=== PATIENT | male | born 1965 | race Caucasian/White ===

== ENCOUNTER 2022-08-19 19:25 | Emergency (ER) | payer OTHER ==
--- NOTE | 2022-08-19 19:53 | ERPHSYRPT ---
- History of Present Illness Time Seen by Provider: 08/19/22 19:40 Source: patient Exam Limitations: no limitations Patient Subjective Stated Complaint: pt states he had a coughing fit and lost vision in his rt eye. states he has a very slight headache on the lt side of his head, rates 1/10 Triage Nursing Assessment: pt alert and oriented answers questions approp. pt ambulates into room with steady gait noted. respirations nonlabored. skin warm and dry. bilat upper and lower ext strength equal and wnl. Timing/Duration: today, hour(s) (2) Location: right eye Severity: moderate Apparent Injury: no Associated Symptoms: decreased vision, No pain, No burning, No itching, No sensitivity to light, No redness, No matting, No eyelid swelling, No foreign body sensation, No blurred vision, No double vision Visual Assistive Devices: None Chemical Exposure: No Trauma: No Welding Arc/Tanning Bed Exposure: No Allergies/Adverse Reactions: No Known Drug Allergies Allergy (Verified 08/19/22 19:43) Home Medications: Lisinopril 20 mg [Zestril 20 MG] 20 mg PO DAILY 08/19/22 [History] Hx Tetanus, Diphtheria Vaccination/Date Given: No Hx Influenza Vaccination/Date Given: No Hx Pneumococcal Vaccination/Date Given: No Travel Risk - International Travel Have you traveled outside of the country in past 3 weeks: No - Coronavirus Screening Are you exhibiting any of the following symptoms?: No Close contact with a COVID-19 positive Pt in past 14-21 Days: No - Vaccine Status Have you recieved a Covid-19 vaccination: Yes Collar Starcher: Moderna - Vaccination Dates Date of 2cond Vaccination (if applicable): na - Review of Systems Constitutional: No Fever, No Chills Eyes: Vision Changes, No Discharge, No Eye Pain, No Eye Redness, No Itchy, No Photophobia, No Foreign Body Sensation Ears, Nose, & Throat: No Ear Pain, No Ear Discharge, No Nose Congestion, No Nose Discharge, No Sinus Drainage, No Epistaxis, No Mouth Pain, No Mouth Swelling, No Throat Pain, No Painful Swallowing Respiratory: No Cough, No Dyspnea Cardiac: No Chest Pain, No Edema, No Syncope Abdominal/Gastrointestinal: No Abdominal Pain, No Nausea, No Vomiting, No Diarrhea Genitourinary Symptoms: No Dysuria Musculoskeletal: No Back Pain, No Neck Pain Skin: No Rash Neurological: Headache, No Dizziness, No Focal Weakness, No Lethargy, No Paralysis, No Parasthesia, No Seizure, No Sensory Changes, No Speech Changes, No Tremors Psychological: No Symptoms Endocrine: No Symptoms All Other Systems: Reviewed and Negative - Past Medical History Pertinent Past Medical History: Yes Cardiac History: High Cholesterol, Hypertension Psycho-Social History: Depression - Past Surgical History Past Surgical History: No - Social History Smoking Status: Current every day smoker How long have you smoked: 40yrs Exposure to second hand smoke: Yes Drug Use: none Patient Lives Alone: No - Nursing Vital Signs Nursing Vital Signs: Initial Vital Signs Temperature 98.1 F 08/19/22 19:30 Pulse Rate 83 08/19/22 19:30 Respiratory Rate 16 08/19/22 19:30 Blood Pressure 156/86 08/19/22 19:30 O2 Sat by Pulse Oximetry 99 08/19/22 19:30 Pain Scale Pain Intensity 1 - Physical Exam General Appearance: no apparent distress, alert Vision Acuity Degree Evaluation Phase: Uncorrected Vision Acuity Right Eye: 20/100 Vision Acuity Left Eye: 20/50 Eye Exam: bilateral eye: normal inspection, PERRL, EOMI Ears, Nose, Throat Exam: normal ENT inspection, TMs normal, pharynx normal, moist mucous membranes Neck Exam: normal inspection, non-tender, supple, full range of motion, No meni ngismus, No Brudzinski Respiratory Exam: normal breath sounds Cardiovascular Exam: regular rate/rhythm, normal heart sounds, capillary refill <2 sec Gastrointestinal Exam: soft, normal bowel sounds, No tenderness, No mass, No guarding, No rebound Extremity Exam: normal inspection, normal range of motion, No tenderness Neurologic: alert, oriented x 3, cooperative, rural service engineer II-XII nml as tested, normal mood/affect, nml cerebellar function, nml station & gait, sensation nml, motor deficits, other (NIHSS: 0) Skin Exam: normal color, warm, dry, No rash, No petechiae, No jaundice, No cyanosis Lymphatic: No adenopathy SpO2 Interpretation: normal SpO2: 99 O2 Delivery: Room Air - Course Nursing assessment & vital signs reviewed: Yes EKG Interpreted by Me: RATE, Sinus Rhythm (76), NORMAL AXIS, NORMAL INTERVALS, NORMAL QRS, NORMAL ST-T - CT Exams Head CT Interpretation: Negative, Tele-radiologist Report (Normal CT of the head) Ordered Tests: Active Orders 24 hr Category Date Time Status Credit Correspondence Clerk STAT Care 08/19/22 19:44 Active EKG-ER Only STAT Care 08/19/22 19:43 Active NPO (ED) STAT Care 08/19/22 19:43 Active Visual Acuity STAT Care 08/19/22 19:43 Active HEAD WITHOUT CONTRAST [CT] Stat Exams 08/19/22 19:44 Completed BMP Stat Lab 08/19/22 19:43 Completed CBC W DIFF Stat Lab 08/19/22 19:43 Completed ETHYL ALCOHOL Stat Lab 08/19/22 19:43 Completed MAGNESIUM Stat Lab 08/19/22 19:43 Completed PTT Stat Lab 08/19/22 19:43 Completed TROPONIN Q4H Lab 08/19/22 19:43 Completed TROPONIN Q4H Lab 08/19/22 23:45 Ordered TROPONIN Q4H Lab 08/20/22 03:45 Ordered TSH [TSH, 3RD Generation] Stat Lab 08/19/22 19:43 Completed UA W/RFX UR CULTURE Stat Lab 08/19/22 19:44 Ordered Lab/Rad Data: Laboratory Result Diagrams 08/19/22 19:43 08/19/22 19:43 Laboratory Results 08/19/22 08/19/22 08/19/22 Range/Units 19:43 19:43 19:43 WBC (4.0-10.5) x10^3/uL RBC (4.1-5.6) x10^6/uL Hgb (12.5-18.0) g/dL Hct (42-50) % MCV (78-100) fL MCH (26-32) pg MCHC (32-36) g/dL RDW (11.5-14.0) % Plt Count (150-450) x10^3/uL MPV (7.5-11.0) fL Gran % (36.0-66.0) % Immature Gran % (Auto) (0.00-0.4) % Nucleat RBC Rel Count (0.00-0.1) % Eos # (Auto) (0-0.5) x10^3/uL Immature Gran # (Auto) (0.00-0.03) x10^3u/L Absolute Lymphs (auto) (1.0-4.6) x10^3/uL Absolute Monos (auto) (0.0-1.3) x10^3/uL Absolute Nucleated RBC (0.00-0.01) x10^3u/L Lymphocytes % (24.0-44.0) % Monocytes % (0.0-12.0) % Eosinophils % (0.00-5.0) % Basophils % (0.0-0.4) % Absolute Granulocytes (1.4-6.9) x10^3/uL Basophils # (0-0.4) x10^3/uL APTT 27.2 (25.1-36.5) SECONDS Sodium (137-145) mmol/L Potassium (3.5-5.1) mmol/L Chloride (98-107) mmol/L Carbon Dioxide (22-30) mmol/L Anion Gap (5-15) MEQ/L BUN (9-20) mg/dL Creatinine (0.66-1.25) mg/dL Estimated GFR ML/MIN Glucose (74-106) mg/dL Calcium (8.4-10.2) mg/dL Magnesium 2.1 (1.6-2.3) mg/dL Troponin I < 0.012 (0.000-0.034) ng/mL TSH 3rd Generation 3.760 (0.47-4.68) mIU/L Ethyl Alcohol (0-10) mg/dL 08/19/22 08/19/22 Range/Units 19:43 19:43 WBC 8.1 (4.0-10.5) x10^3/uL RBC 4.76 (4.1-5.6) x10^6/uL Hgb 14.7 (12.5-18.0) g/dL Hct 44.5 (42-50) % MCV 93.5 (78-100) fL MCH 30.9 (26-32) pg MCHC 33.0 (32-36) g/dL RDW 11.9 (11.5-14.0) % Plt Count 302 (150-450) x10^3/uL MPV 9.6 (7.5-11.0) fL Gran % 57.2 (36.0-66.0) % Immature Gran % (Auto) 0.2 (0.00-0.4) % Nucleat RBC Rel Count 0.0 (0.00-0.1) % Eos # (Auto) 0.33 (0-0.5) x10^3/uL Immature Gran # (Auto) 0.02 (0.00-0.03) x10^3u/L Absolute Lymphs (auto) 2.41 (1.0-4.6) x10^3/uL Absolute Monos (auto) 0.66 (0.0-1.3) x10^3/uL Absolute Nucleated RBC 0.00 (0.00-0.01) x10^3u/L Lymphocytes % 29.8 (24.0-44.0) % Monocytes % 8.1 (0.0-12.0) % Eosinophils % 4.1 (0.00-5.0) % Basophils % 0.6 (0.0-0.4) % Absolute Granulocytes 4.63 (1.4-6.9) x10^3/uL Basophils # 0.05 (0-0.4) x10^3/uL APTT (25.1-36.5) SECONDS Sodium 140 (137-145) mmol/L Potassium 4.1 (3.5-5.1) mmol/L Chloride 101 (98-107) mmol/L Carbon Dioxide 35 H (22-30) mmol/L Anion Gap 8.0 (5-15) MEQ/L BUN 14 (9-20) mg/dL Creatinine 0.86 (0.66-1.25) mg/dL Estimated GFR > 60.0 ML/MIN Glucose 76 (74-106) mg/dL Calcium 8.6 (8.4-10.2) mg/dL Magnesium (1.6-2.3) mg/dL Troponin I (0.000-0.034) ng/mL TSH 3rd Generation (0.47-4.68) mIU/L Ethyl Alcohol < 10 (0-10) mg/dL - Progress Progress: unchanged Progress Note: 08/19/22 19:43 Patient is not a candidate for alteplase due to his NIHSS being zero and his visual acuity grossly intact 08/19/22 19:52 Right eye: 20/100; Left eye: 20/50 08/19/22 20:35 Patient came in with partial visual field loss in the right side after coughing. His examination showed gross visual lee intact but the medial aspect of his right visual lee that he could not see anything clearly, and without have any other focal neurologic deficits on his examination, I do not feel the patient had a cerebrovascular accident that required alteplase and his CT of his head was negative for any concerning findings of the visual area of the occipital lobe. Patient had normal sinus rhythm with no sinus arrhythmias on his cardiac monitoring had a normal EKG, normal secondary work-up in regards to labs including CBC, CMP, TSH, magnesium and troponin, so patient was discussed with ophthalmology and Patti browne at [facility] who accepted the patient for transfer to the emergency department where he was seen in the emergency room and determine if he has any potential signs of a retinal detachment, posterior visual detachment causing blockage of vision or any lens detachment that is causing change in his vision. Patient will be going by private vehicle to decreased transportation time as we have no ambulance coverage at this time and he was in stable condition to be transported via private vehicle and patient and his peg driver understand to go straight to the emergency room with no stop anywhere else so that ophthalmology may be able to see the patient with limited loss of time. Discussed with .: Other (Dr Ramirez, web analyst at [facility] in [place], [place]) Will see patient in: ED (At [facility] emergency department in [place], [place]) Counseled pt/family regarding: lab results, diagnosis, need for follow-up, rad results, smoking cessation Medical Desision Making - Discussion of managment Care discussed with:: specialist Reviewed:: Test results, Need for additional workup Agreed on:: need for follow-up Will see patient: in ED - Social Determinants of Health Limited access to: transportation - Diagnostic Testing Diagnostic test were ordered, analyzed, and reviewed by me: Yes Radiological Interpretation: Reviewed by me, Teleradiologist Report - Risk of complications The pt has a high risk of morbidity or mortality based on: Decision regarding hospitilization or escalation of hosp level of care (Probable need for ophthalmologic surgical intervention) - Departure Departure Disposition: Transfer ([facility]) Clinical Impression: Vision loss of right eye, Essential hypertension Condition: Fair Critical Care Time: Yes Critical Care Time(excluding separately billable procedures): Critical 30-74 mins Additional Instructions: Go straight to the emergency room at [facility] in [place], [place]. Instructions given to you by nursing
[2022-08-19 19:59] LABS: Absolute Neutrophil Ct (ANC) 4.63 x10^3/uL (1.4-6.9); BASOPHIL % 0.6 % (0.0-0.4); Basophil (Absolute #) 0.05 x10^3/uL (0-0.4); Eosinophil % 4.1 % (0.00-5.0); Eosinophil (Absolute #) 0.33 x10^3/uL (0-0.5); Hematocrit 44.5 % (42-50); Hemoglobin 14.7 g/dL (12.5-18.0); IMMATURE GRAN # 0.02 x10^3u/L (0.00-0.03); IMMATURE GRAN % 0.2 % (0.00-0.4); Lymphocyte (Absolute #) 2.41 x10^3/uL (1.0-4.6); Lymphocytes % 29.8 % (24.0-44.0); Mean Cell Volume 93.5 fL (78-100); Mean Corpuscular Hemoglobin 30.9 pg (26-32); Mean Platelet Volume 9.6 fL (7.5-11.0); Monocyte (Absolute #) 0.66 x10^3/uL (0.0-1.3); Monocytes % 8.1 % (0.0-12.0); Neutrophil % 57.2 % (36.0-66.0); Platelet Count 302 x10^3/uL (150-450); Red Blood Count 4.76 x10^6/uL (4.1-5.6); Red Cell Distribution Width 11.9 % (11.5-14.0); White Blood Count 8.1 x10^3/uL (4.0-10.5)
[2022-08-19 20:15] LABS: BLOOD UREA NITROGEN 14 mg/dL (9-20); CHLORIDE 101 mmol/L (98-107); Calcium 8.6 mg/dL (8.4-10.2); Carbon Dioxide 35 mmol/L (22-30); Creatinine 1 0.86 mg/dL (0.66-1.25); EST GLOMERULAR FILTRATION RATE > 60.0 ML/MIN; ETHYL ALCOHOL < 10 mg/dL (0-10); Glucose 76 mg/dL (74-106); Potassium 4.1 mmol/L (3.5-5.1); SODIUM 140 mmol/L (137-145)
--- NOTE | 2022-08-19 20:19 | XRAY ---
Indication: Right eye vision loss with coughing. Left-sided headache. Multiple contiguous axial images obtained through the head without contrast. Comparison: None Normal appearing brain parenchyma, ventricles, and bony calvarium for patient's age. Visualized paranasal sinuses and mastoid air cells are clear. Impression: Normal CT head without contrast exam.
[2022-08-19 20:46] LABS: TROPONIN < 0.012 ng/mL (0.000-0.034)
[2022-08-19 21:01] VITALS: BP 133/88; PULSE 78
[2022-08-19 21:08] VITALS: O2SAT 99
== END 2022-08-19 21:05 | disposition short-term general hospital (02) ==
LOC: ED 19:25
DX: H54.61 Unqualified visual loss, right eye, normal vision left eye (principal); I10 Essential (primary) hypertension; E78.5 Hyperlipidemia, unspecified; Z79.899 Other long term (current) drug therapy; Z72.0 Tobacco use
CPT/HCPCS: 36415; 70450; 80048; 80307; 83735; 84443; 84484; 85025; 85730; 93005; 93041; 99284; 99291; G0480

== ENCOUNTER 2023-07-12 22:07 | Emergency (ER) | payer MEDICAID, OTHER ==
--- NOTE | 2023-07-12 22:31 | ERPHSYRPT ---
- History of Present Illness Time Seen by Provider: 07/12/23 22:31 Source: patient, family Exam Limitations: no limitations Physician History: This is a 58-year-old white male patient with no family doctor presents to the emergency department is 1 to 2-day history of worsening pain redness and swelling to the dorsal and lateral aspect of his right foot. Patient is not diabetic. He suffered no injury. There is no odor present. There is no open drainage site. He has never had this type of issue before. He has no history of gout. Patient has not had a fever. Patient is a daily smoker of cigarettes. Patient has a ride home. Patient does have a history of hyperlipidemia and hypertension. Method of Injury: other (No injury) Occurred: days ago (1 to 2 days) Quality: sharpness Severity of Pain-Max: mild (To moderate) Severity of Pain-Current: mild (To moderate) Lower Extremities Pain: foot: right (Dorsal and lateral aspect including digits 345 with redness) Modifying Factors: Improves With: movement Associated Symptoms: other (Hurts to bear weight but can do so) Allergies/Adverse Reactions: No Known Drug Allergies Allergy (Verified 07/12/23 22:46) Home Medications: Lisinopril 20 mg [Zestril 20 MG] 20 mg PO DAILY 08/19/22 [History] Hx Tetanus, Diphtheria Vaccination/Date Given: No Hx Influenza Vaccination/Date Given: No Hx Pneumococcal Vaccination/Date Given: No Travel Risk - International Travel Have you traveled outside of the country in past 3 weeks: No - Coronavirus Screening Are you exhibiting any of the following symptoms?: No Close contact with a COVID-19 positive Pt in past 14-21 Days: No - Vaccine Status Have you recieved a Covid-19 vaccination: Yes General Assistant: Moderna - Vaccination Dates Date of 2cond Vaccination (if applicable): na - Review of Systems Constitutional: No Symptoms Eyes: No Symptoms Ears, Nose, & Throat: No Symptoms Respiratory: No Symptoms Cardiac: No Symptoms Abdominal/Gastrointestinal: No Symptoms Genitourinary Symptoms: No Symptoms Musculoskeletal: No Symptoms Skin: Cellulitis Neurological: No Symptoms Psychological: No Symptoms Endocrine: No Symptoms Hematologic/Lymphatic: No Symptoms Immunological/Allergic: No Symptoms All Other Systems: Reviewed and Negative - Past Medical History Pertinent Past Medical History: Yes Cardiac History: High Cholesterol, Hypertension Psycho-Social History: Depression - Past Surgical History Past Surgical History: No - Social History Smoking Status: Current every day smoker How long have you smoked: 40yrs Exposure to second hand smoke: Yes Drug Use: none Patient Lives Alone: No - Physical Exam General Appearance: no apparent distress, alert, anxiety Eyes, Ears, Nose, Throat Exam: moist mucous membranes, other (Poor dentition with multiple missing teeth) Neck Exam: normal inspection, non-tender, supple, full range of motion Cardiovascular/Respiratory Exam: chest non-tender, no respiratory distress Gastrointestinal/Abdominal Exam: non-tender Back Exam: normal inspection, normal range of motion, No CVA tenderness, No vertebral tenderness Hips Exam: bilateral: non-tender, normal inspection, normal range of motion, no evidence of injury Legs Exam: bilateral leg: non-tender, normal inspection, normal range of motion, no evidence of injury Knees Exam: bilateral knee: non-tender, normal inspection, normal range of motion, no evidence of injury Ankle Exam: bilateral ankle: non-tender, normal inspection, normal range of motion, no evidence of injury Foot Exam: right foot: soft tissue tenderness, swelling, left foot: non-tender, normal inspection, normal range of motion, no evidence of injury, other (Cellulitis dorsal and lateral aspect. Digits 345 are also red and tender. No open wounds. No abscess. Strong pedal pulses present) Neuro/Tendon Exam: normal sensation, normal motor functions, normal tendon functions, responds to pain, no evidence tendon injury Mental Status Exam: alert, oriented x 3, cooperative Skin Exam: other (Cellulitis left foot. See above description) SpO2 Interpretation: normal O2 Delivery: Room Air - Course Nursing assessment & vital signs reviewed: Yes Ordered Tests: Medication Summary Discontinued Medications Generic Name Dose Route Start Last Admin Trade Name Freq PRN Reason Stop Dose Admin Ceftriaxone Sodium 1,000 mg 07/12/23 22:54 Ceftriaxone Sodium 1000 Mg Inj Vial IM 07/12/23 22:55 STAT ONE Methylprednisolone Sodium 0 mg 07/12/23 22:54 Succinate 125 mg/ Sterile IM 07/12/23 22:55 Water 2 ml STAT ONE Oxycodone/Acetaminophen 1 tab 07/12/23 22:53 Oxycodone Hcl/Apap 5 Mg/325 Mg Tablet PO 07/12/23 22:54 STAT STA Trimethoprim/Sulfamethoxazole 1 tab 07/12/23 22:56 Smz/Tmp Ds Tablet 1 Tablet PO 07/12/23 22:57 STAT ONE - Progress Progress: pain not gone completely Progress Note: 07/12/23 23:05 This patient's medical issue is 1 of low complexity. The level of complexity and the workup performed is based on review of the patient's past medical history, review of the patient's medication list, review of the patient's drug allergy list, history of present illness and physical findings on examination. No laboratory or radiographic studies necessary in this patient. We will provide the patient with Percocet 5/325 orally, oral Bactrim DS and injection of Rocephin 1 g intramuscularly. Counseled pt/family regarding: diagnosis, need for follow-up Medical Desision Making - Diagnostic Testing Diagnostic test were ordered, analyzed, and reviewed by me: No - Risk of complications The pt has a mod risk of morbidity or mortality based on: Need for prescription drug management - Departure Departure Disposition: Home Clinical Impression: Cellulitis of right foot Condition: Stable Critical Care Time: No Referrals: DOCTOR,NO FAMILY [Primary Care Provider] - Follow up/PCP as directed Additional Instructions: Keep your right foot clean daily with soap and water. Apply unscented moisturizing lotion to your feet and legs bilaterally at least twice a day. Take your medications as prescribed. Return to the emergency department in the next 24 to 48 hours if symptoms not improving. Prescriptions: Oxycodone HCl/Acetaminophen [Percocet 5-325 mg Tablet] 1 each PO Q8H PRN PRN #6 tablet MDD 3 PRN Reason: Moderate To Severe Pain Smz/Tmp Ds Tablet [Bactrim Ds Tablet] 1 udtab PO BID #14 tablet Prednisone 10 mg [Deltasone 10 mg] 10 mg PO TID #12 tablet
[2023-07-12] MEDS ORDERED: PERCOCET TABLET 5/325MG PO STA (22:53)
[2023-07-12] MEDS ORDERED: solu-MEDROL 125 MG, Sterile H2O 10 ml 2 ML IM ONE ×2 (22:54)
[2023-07-12] MEDS ORDERED: Rocephin 1000 MG INJ IM ONE (22:54)
[2023-07-12] MEDS ORDERED: BACTRIM DS TABLET PO ONE ×2 (22:56→23:11)
[2023-07-12 23:02] VITALS: PULSE 80; TEMP 98.1
[2023-07-12] MEDS ORDERED: solu-MEDROL ONE (23:11)
[2023-07-12] MEDS ORDERED: PERCOCET TABLET 5/325MG ONE (23:11)
[2023-07-12] MEDS ORDERED: Sterile H2O 10 ml IJ ONE (23:11)
[2023-07-12] MEDS ORDERED: Rocephin 1000 MG INJ ONE (23:12)
[2023-07-12] MEDS ORDERED: XYLOCAINE 1% HCL 20 ML MDV ONE (23:12)
[2023-07-12 23:57] VITALS: O2SAT 94
[2023-07-13 00:15] VITALS: BP 154/89; RESP 18
== END 2023-07-13 00:10 | disposition home or self-care (01) ==
LOC: ED 22:07
DX: L03.115 Cellulitis of right lower limb (principal); M79.671 Pain in right foot; E78.5 Hyperlipidemia, unspecified; I10 Essential (primary) hypertension; Z79.891 Long term (current) use of opiate analgesic; Z79.52 Long term (current) use of systemic steroids; Z79.899 Other long term (current) drug therapy; Z72.0 Tobacco use
CPT/HCPCS: 96372; 99283; J0696; J2930; A9270-GY